=== PATIENT | female | born 1935 | race Caucasian/White ===

== ENCOUNTER → 2020-07-29 | Outpatient (CLI) | payer OTHER ==
[~2020-07-29] MED LIST: ALLERCLEAR10 MG PO; AMBEREN; ATENOLOL 50MG T50 M1 PO; ATENOLOL 50MG T50 MG; CIPRO250 MG PO; CIPROFLOXACIN500 M1 PO; COD LIVER OIL1 EACH PO; NORCO 5-325 TA1 EACH PO; OXYBUTYNIN PO; VITAMIN D3; ZOCOR 20 MG TAB20 M1; ZOCOR 20 MG TAB20 M1 PO; ZOFRAN4 MG PO; red yeast rice
== END ==
LOC: M.RAD 14:05
PROVIDERS: ATTEND Internal Medicine
DX: M19.011 Primary osteoarthritis, right shoulder (principal); M43.8X4 Other specified deforming dorsopathies, thoracic region